=== PATIENT | male | born 1960 | race Caucasian/White ===

== ENCOUNTER → 2016-10-29 | Day surgery (SDC) | payer OTHER ==
[~2016-10-29] MED LIST: ACETAMINOPHEN/HYDROcodone 325 MG/5 MG TAB ONE; BUPIVACAINE/EPINEPHRINE 0.25% PF 30 ML VIAL ONE; KETOROLAC TROMETHAMINE 30 MG/ML (IVP) VIAL IV PUSH ONE; LACTATED RINGER'S 1000 ML INJ 1,000 ML ONE; LIDOCAINE 1%/EPINEPHrine 1:100,000 SOLN 30 ML VIAL ONE; MIDAZOLAM HCL 2 MG/2 ML VIAL ONE; ONDANSETRON HCL 4 MG/2 ML VIAL IV PUSH ONE; PROPOFOL 200 MG/20 ML AMP IV ONE; ceFAZolin INJ 1,000 MG VIAL ONE
--- NOTE | 2016-10-29 12:12 | TN ---
cc: DOMINIC BOOTH M.D. DATE OF SURGERY: 10/29/2016 PREOPERATIVE DIAGNOSIS Left inguinal hernia. POSTOPERATIVE DIAGNOSIS Left indirect inguinal hernia. PROCEDURE Repair of left inguinal hernia with mesh. ANESTHESIA [place]IV[place]. SURGEON Dr. Booth INDICATION This is a pleasant 55-year-old gentleman who has a symptomatic left inguinal hernia. Plans were made for above. DETAILS OF PROCEDURE The patient was taken to the operating room and placed in supine position. After anesthesia his abdomen and left groin are prepped with Betadine. We make an oblique incision overlying the internal and external ring, dissect down through Jonathan's fascia identifying the external oblique aponeurosis; this is incised. We then surround the cord structure with a Vero drain. A hernia defect indirect type is identified. The hernia defect is then away from the cord structures and ligated with Vicryl suture. The hernia sac is amputated and passed off the field. We then place a piece of polypropylene mesh cut to size securing it to the pubic tubercle, Bharat's ligament and the iliopubic tract out laterally, all done with 0 Ethibond and medial to the conjoined tendon. The tails are secured to themselves and the internal oblique aponeurosis. We then close the external oblique aponeurosis with 2-0 Vicryl, Jonathan's with 2-0 Vicryl and skin with 4-0 Vicryl. Please note we did preserve the ilioinguinal nerve as well. The patient tolerated the procedure well, had no immediate post-op complication. Dominic Booth MD JSHEREE/LAUREN /11:41 AM /12:08 PM LALA
== END | disposition home or self-care (01) ==
LOC: EDBD 08:38 → ESDC 08:38
PROVIDERS: ATTEND Surgery
DX: K40.90 Unilateral inguinal hernia, without obstruction or gangrene, not specified as recurrent (principal)
CPT/HCPCS: 00830; 49505; C1781; J0690; J1885; J2250; J2405; J3010; J7120